=== PATIENT | female | born 1940 ===

== ENCOUNTER 2018-09-17 17:45 | Emergency (ER) | payer MEDICARE ==
[2018-09-17 17:57] VITALS: BP 116/83
[2018-09-17] MEDS ORDERED: ATIVAN PO STA (19:33)
[2018-09-17] MEDS ORDERED: ATIVAN ONE (19:40)
--- NOTE | 2018-09-17 20:49 | Emergency Department Report ---
ED General Adult HPI - General Chief complaint: Medical Clearance Stated complaint: MEDICATION REFILL Time Seen by Provider: 09/17/18 19:33 Source: patient Mode of arrival: Ambulatory Limitations: No Limitations - History of Present Illness Initial comments: Ms. Gray is here with her daughter for medication refill. Her doctor is out of Tylenol a days, she has run out of her Ativan which she takes twice a day. He hasn't appointment first week of September, but took the last dose of medication this morning and becoming increasingly anxious over the. No chest pain or palpitations. No hallucinations. No suicidal or homicidal ideation. Radiation: non-radiation Improves with: none Worsens with: none Associated Symptoms: denies other symptoms Treatments Prior to Arrival: none - Related Data Previous Rx's Medication Instructions Recorded Last Taken Type LORazepam [Ativan] 0.5 mg PO BID #10 tablet 06/16/15 Unknown Rx Metoprolol [Lopressor TAB] 50 mg PO QDAY #30 tablet 06/16/15 Unknown Rx LORazepam [Ativan] 0.5 mg PO BID #10 tab 09/17/18 Unknown Rx Allergies Allergy/AdvReac Type Severity Reaction Status Date / Time No Known Allergies Allergy Unverified 06/14/15 03:22 ED Review of Systems ROS: Stated complaint: MEDICATION REFILL Other details as noted in HPI Constitutional: denies: chills, fever Eyes: denies: eye pain, eye discharge, vision change ENT: denies: ear pain, throat pain Respiratory: denies: cough, shortness of breath, wheezing Cardiovascular: denies: chest pain, palpitations Endocrine: no symptoms reported Gastrointestinal: denies: abdominal pain, nausea, diarrhea Genitourinary: denies: urgency, dysuria, discharge Musculoskeletal: denies: back pain, joint swelling, arthralgia Skin: denies: rash, lesions Neurological: denies: headache, weakness, paresthesias Psychiatric: anxiety. denies: depression Hematological/Lymphatic: denies: easy bleeding, easy bruising ED Past Medical Hx - Past Medical History Hx Hypertension: Yes Hx Renal Disease: Yes Additional medical history: 'kidney problems' - Surgical History Past Surgical History?: No - Social History Smoking Status: Never Smoker Substance Use Type: None - Medications Home Medications: Home Medications Medication Instructions Recorded Confirmed Last Taken Type LORazepam [Ativan] 0.5 mg PO BID #10 tablet 06/16/15 Unknown Rx Metoprolol [Lopressor TAB] 50 mg PO QDAY #30 tablet 06/16/15 Unknown Rx LORazepam [Ativan] 0.5 mg PO BID #10 tab 09/17/18 Unknown Rx ED Physical Exam - General Limitations: No Limitations General appearance: alert, in no apparent distress - Head Head exam: Present: atraumatic, normocephalic - Eye Eye exam: Present: normal appearance - ENT ENT exam: Present: mucous membranes moist - Neck Neck exam: Present: normal inspection - Respiratory Respiratory exam: Present: normal lung sounds bilaterally. Absent: respiratory distress - Cardiovascular Cardiovascular Exam: Present: regular rate, normal rhythm. Absent: systolic murmur, diastolic murmur, rubs, gallop - GI/Abdominal GI/Abdominal exam: Present: soft, normal bowel sounds - Extremities Exam Extremities exam: Present: normal inspection - Back Exam Back exam: Present: normal inspection - Neurological Exam Neurological exam: Present: alert, oriented X3 - Psychiatric Psychiatric exam: Present: normal affect, normal mood, anxious (and irritable) - Skin Skin exam: Present: warm, dry, intact, normal color. Absent: rash ED Course Vital Signs 09/17/18 17:54 Temperature 98.2 F Pulse Rate 74 Respiratory 18 Rate Blood Pressure 116/83 O2 Sat by Pulse 99 Oximetry Critical care attestation.: If time is entered above; I have spent that time in minutes in the direct care of this critically ill patient, excluding procedure time. ED Disposition Clinical Impression: Medication refill Disposition: DC-01 TO HOME OR SELFCARE Is pt being admited?: No Does the pt Need Aspirin: No Condition: Stable Referrals: [facility] [Provider Group] - 3-5 Days
== END 2018-09-17 21:00 | disposition home or self-care (01) ==
LOC: ED 17:45
DX: F41.9 Anxiety disorder, unspecified (principal); I10 Essential (primary) hypertension; Z76.0 Encounter for issue of repeat prescription
CPT/HCPCS: 99282